=== PATIENT | female | born 1950 | race Caucasian/White ===

== ENCOUNTER → 2022-07-10 09:51 | Outpatient (BNVA) | payer MEDICARE, BC, SELFPAY | PROVIDERS: PCP Internal Medicine; Visit Provider Nurse Practitioner Family | DX: G47.00 Insomnia, unspecified (principal); R41.3 Other amnesia | CPT/HCPCS: 99202 ==

== ENCOUNTER 2023-02-12 09:20 | Outpatient (AMB) | payer MEDICARE, BC, SELFPAY ==
--- NOTE | 2023-02-12 09:24 | MHC.OFFVIS ---
Intake Vital Signs 02/12/23 09:25 Height 5 ft Weight 197 lb BMI 38.5 Pulse 77 Pulse Source Pulse Oximeter Pulse Oximetry (%) 95 Oxygen Delivery Method Room Air Intake Visit Reasons: 6 mo f/u for Memory-LVM Intake Note: Patient presents for 6 month follow up memory. Patient states I want to tell you that Im not taking trazadone its causing bowel problems. Allergies metformin Allergy (Unknown, Verified 02/12/23 09:29) Diarrhea oxycodone Allergy (Unknown, Verified 02/12/23 09:29) Unknown Penicillins Allergy (Unknown, Verified 02/12/23 09:29) Rash Sulfa (Sulfonamide Antibiotics) Allergy (Unknown, Verified 02/12/23 09:29) Hives Medication List - Last Reconciled 02/12/23 by JENNIFER Sethi aspirin 81 mg PO DAILY atorvastatin 20 mg PO DAILY cetirizine (Zyrtec) 10 mg PO DAILY cholecalciferol (vitamin D3) 10 mcg PO DAILY dulaglutide (Trulicity) mg subcut dulaglutide (Trulicity) 3 mg subcut QWEEK fluticasone propionate 50 mcg/actuation sprays intranasal glipizide 2.5 mg PO hydrochlorothiazide 25 mg PO DAILY lisinopril 10 mg PO BID metoprolol tartrate 25 mg PO BID [id number] [id number] 18 mg-400 mcg- 25 mcg (One-A-Day Women's Complete(with vit K)) tabs PO DAILY nitroglycerin 0 mg sublingual omeprazole 20 mg PO DAILY tolterodine ER 4 mg PO DAILY trazodone 25 mg PO BEDTIME vitamin E mixed units PO HPI HPI Comments History of Present Illness Details 72-yr-old female presents for f/u visit. Pt denies any significant interval medical changes. She continues to have some STM lapses. Pt's notes that recently pt put the bread away in the microwave- but notes that years ago this is were they sued to store their bread. He also notes that [place]- so they pack up and move back and forth- so they may reasonably not know where everything is at any given time. Pt reports she has not been sleeping well over the past few months. She thinks this may be d/t increased anxiety regarding this appt and that Dr Joseph told her she might have Alzheimer's. She did try Trazodone for sleep- but this caused her to have bowel troubles so she she stopped it. [facility] Medical History (Updated 02/12/23 @ 12:49 by JENNIFER Sethi) OAB (overactive bladder) GERD (gastroesophageal reflux disease) Primary skin microcystic adnexal carcinoma Uterine leiomyoma Anatomical narrow angle, bilateral Subclinical hypothyroidism DDD (degenerative disc disease), lumbar Nuclear sclerosis of both eyes Left choroidal nevus Alternating exotropia HTN (hypertension) Diabetes Asthma Surgical History Hx of tonsillectomy Hx of cholecystectomy History of kidney surgery Hx of breast surgery Social History Alcohol intake: never Patient Tobacco Use Status: Former Tobacco user Quit Date: 04/30/78 Review of Systems Const All systems reviewed & are unremarkable except as noted in HPI and below Physical Exam Vital Signs: Last Vital Signs Pulse 77 02/12/23 09:25 Pulse Ox 95 02/12/23 09:25 Oxygen Delivery Method Room Air 02/12/23 09:25 BMI result Body Mass Index 38.5 Const General: cooperative and no acute distress Orientation/consciousness: patient oriented x3 HEENT Head: Yes normocephalic Resp Effort & Inspection: normal respiratory effort and able to speak in complete sentences Neuro Other: Clock drawing- Fair- numbers slightly askew- did not write 11 . On instruction to draw time as 10 of 2- pt wrote 10 : 2 , then timothy both hands pointing to 2 o'clock. General: patient oriented x3, gait normal and CN's II-XI intact bilaterally Motor exam (neuro): 5/5 motor strength present throughout Psych Appearance: grossly normal Mental Status: mental status grossly normal Speech and movement: Normal speech and movement present Affect: normal affect Attitude: cooperative Thought process: Normal thought process present Thought content: Normal thought content present Insight: Good insight present (Psych) Judgement: Good judgement present (Psych) Orientation What is the (year) (season) (date) (day) (month)?: year, season, date, day and month Where are we (state) (county) (town or city) (hospital) (floor)?: state, county, town or city, hospital/clinic and floor Registration Name of 3 unrelated objects clearly and slowly, then ask patient to repeat all 3 of them. (1st repeat determines score. Make sure they can repeat all three): object 1, object 2 and object 3 Attention & Calculation (CHOOSE ONE) Spell WORLD backwards (DLROW): 5 letters Recall Ask patient to repeat the 3 items from question #3.: object 1 Language Show patient a wristwatch & ask what it is. Repeat for pencil.: watch and pencil Ask the patient to repeat the phrase 'No ifs, ands, or buts' after you.: correct Ask the patient to 'take a piece of paper with their right hand' 'fold paper in half' 'place paper on floor': take paper in right hand, fold paper in half and place paper on floor Print the sentence 'CLOSE YOUR EYES' on a piece. If patient actually closes eyes then score.: followed written direction Give patient a blank piece of paper & ask to write a sentence. Score if it contains a noun & verb.: sentence contains subject and verb Score Score: 27 Assessment & Plan Assessment & Plan (1) Short-term memory loss: Comment: MMSE 27/30. Fair clock drawing today. MCI vs early dementia. Code(s): R41.3 - Other amnesia (2) Insomnia: Code(s): G47.00 - Insomnia, unspecified Plan Discussed that pt's MMSE score was better today than at her previous visit (27 versus 25), however her Clock drawing was better at the last visit. Pt does agree to undergo a comprehensive neuropsych evaluation. Trial Melatonin 3mg q 5-6pm. Future considerations- sleep study- although at this time, pt denies snoring. treating anxiety. f/u in 4 months or sooner prn. Orders: Referrals Neuropsychiatry Referral R41.3 - Other amnesia Medications: New melatonin 3 mg PO BEDTIME 30 days PRN 30 tabs 3RF sleep Coding Level of Care Code Est Pt Level 3 (57642) Diagnoses Short-term memory loss R41.3 Insomnia G47.00
[2023-02-12 09:25] VITALS: PULSE 77; O2SAT 95; BMI 38.5
== END 2023-02-12 10:41 | disposition home or self-care (01) ==
PROVIDERS: Visit Provider Nurse Practitioner Family
DX: R41.3 Other amnesia (principal); G47.00 Insomnia, unspecified
CPT/HCPCS: 99213

== ENCOUNTER → 2023-02-12 09:20 | Outpatient (BNVA) | payer MEDICARE, BC, SELFPAY | PROVIDERS: Visit Provider Nurse Practitioner Family | DX: R41.3 Other amnesia (principal); G47.33 Obstructive sleep apnea (adult) (pediatric) | CPT/HCPCS: 99212 ==